=== PATIENT | male | born 1945 | race Two or more races ===

== ENCOUNTER → 2017-05-24 | Outpatient (CLI) | payer MEDICARE, OTHER ==
[~2017-05-24] MED LIST: ALLO100T30 PO; ASPI-621 PO; CHOL200024 PO; COLC0.6T37 PO; GLIM2TAB2 PO; LEVO88TA4 PO; LISI-167 PO; METF500T4 PO; METH2.5T PO; OMEP-110 PO; PRAV40TA2 PO; SOTA120T26 PO
[2017-05-24 10:34] LABS: ASPARTATE AMINO TRANSFERASE 13 U/L (15-37); BLOOD UREA NITROGEN 20 mg/dL (7-18)
== END | disposition home or self-care (01) ==
LOC: STAR 09:02
PROVIDERS: ATTEND Specialist
DX: Z12.11 Encounter for screening for malignant neoplasm of colon (principal)
CPT/HCPCS: 36415; 80053; 93005

== ENCOUNTER 2017-05-28 05:27 | Day surgery (SDC) | payer MEDICARE, OTHER ==
[2017-05-24 09:28] VITALS: BP 120/81
[~2017-05-28] VITALS: Ht 177.8 cm; Wt 99.0 kg
[2017-05-28] MEDS ORDERED: LACTATED RINGERS 1,000 ML IV SCH (06:36)
[2017-05-28] MEDS ORDERED: LIDOCAINE 1%, 2ML SQ PRN (07:00)
[2017-05-28] MEDS ORDERED: MIDAZOLAM 1 MG/ML, 2ML ONE (07:12)
[2017-05-28] MEDS ORDERED: PROPOFOL 10 MG/ML, 20ML ONE (07:30)
[2017-05-28] MEDS ORDERED: METOPROLOL 1 MG/ML, 5ML IV PRN (08:30)
[2017-05-28] MEDS ORDERED: ONDANSETRON 2MG/ML, 2ML IVPush PRN (08:30)
[2017-05-28] MEDS ORDERED: HYDROcodone/APAP 7.5-325MG/15ML UDC PO PRN (08:30)
[2017-05-28] MEDS ORDERED: ALBUTEROL SULFATE 2.5 MG/3 ML NPPB PRN (08:30)
[2017-05-28] MEDS ORDERED: hydrALAzine 20 MG/ML, 1ML IV PRN (08:30)
[2017-05-28] MEDS ORDERED: EPHEDRINE 50 MG/ML, 1ML IVPush PRN (08:30)
[2017-05-28] MEDS ORDERED: LABETALOL 5MG/ML, 20ML IV PRN (08:30)
[2017-05-28] MEDS ORDERED: OXYcodone 5 MG/5 ML ORAL.SOL UDC PO PRN (08:30)
[2017-05-28] MEDS ORDERED: PROMETHAZINE 25 MG/ML, 1ML IV PRN (08:30)
[2017-05-28] MEDS ORDERED: ACETAMINOPHEN 325 MG TABLET PO PRN (08:30)
== END 2017-05-28 09:25 ==
LOC: OUT 05:27
PROVIDERS: ATTEND Specialist
DX: K63.5 Polyp of colon (principal); K64.8 Other hemorrhoids; K57.30 Diverticulosis of large intestine without perforation or abscess without bleeding; I25.10 Atherosclerotic heart disease of native coronary artery without angina pectoris; E78.5 Hyperlipidemia, unspecified; E11.9 Type 2 diabetes mellitus without complications; M10.9 Gout, unspecified; I25.2 Old myocardial infarction; Z95.5 Presence of coronary angioplasty implant and graft; Z90.49 Acquired absence of other specified parts of digestive tract; Z98.0 Intestinal bypass and anastomosis status; Z95.0 Presence of cardiac pacemaker
CPT/HCPCS: 45380; 82962; 88305; J2250; J2704; J3490; J7120

== ENCOUNTER 2017-10-25 15:02 | Inpatient (IN) | payer MEDICARE ==
[~2017-10-25] VITALS: Ht 170.2 cm; Wt 94.2 kg
[2017-10-25] MEDS ORDERED: methylPREDNISolone SOD SUCC 125 MG/2 ML IVP ONE (15:30)
[2017-10-25] MEDS ORDERED: SODIUM CHLORIDE FLUSH 10ML SYR IVF ONE (15:30)
[2017-10-25] MEDS ORDERED: SODIUM CHLORIDE 0.9% 1,000ML IVBOLUS ONE (15:30)
[2017-10-25 15:41] LABS: BASOPHILS # (AUTO) 0.06 x10^3/uL (0-0.1); BASOPHILS % (AUTO) 1 % (0-1); EOSINOPHILS # (AUTO) 0.07 x10^3/uL (0-0.4); EOSINOPHILS % (AUTO) 1 % (1-7); LYMPHOCYTES % (AUTO) 15 % (22-44); MD NO; MEAN CORPUSCULAR HEMOGLOBIN 32.3 pg (27.5-34.5); MEAN PLATELET VOLUME 8.1 fL (7.4-10.4); MONOCYTES # (AUTO) 0.99 x10^3/uL (0.2-0.8); MONOCYTES % (AUTO) 8 % (2-9); NEUTROPHILS # (AUTO) 8.94 x10^3/uL (1.8-6.8); NEUTROPHILS % (AUTO) 75 % (42-75); PLATELET COUNT 345 x10^3/uL (130-400); RED BLOOD COUNT 3.61 x10^6/uL (4.38-5.82); RED CELL DISTRIBUTION WIDTH 16.8 % (9.4-14.8)
[2017-10-25] MEDS ORDERED: ALBUTEROL SULFATE 2.5MG/0.5ML ONE (15:45)
[2017-10-25] MEDS ORDERED: ALBUTEROL SULFATE 2.5MG/0.5ML NPPB ONE (15:45)
[2017-10-25] MEDS ORDERED: methylPREDNISolone SOD SUCC 125 MG/2 ML ONE (15:45)
[2017-10-25 15:49] LABS: INTERNATIONAL NORMALIZED RATIO 1.09 (0.93-1.1); PROTHROMBIN TIME 11.3 Seconds (9.6-11.5)
[2017-10-25 15:54] LABS: ALBUMIN 3.2 g/dL (3.4-5.0); ANION GAP 12 mmol/L (5-15); CALCIUM 8.8 mg/dL (8.5-10.1); CHLORIDE 101 mmol/L (98-107); CREATININE 1.19 mg/dL (0.7-1.3)
[2017-10-25 15:58] LABS: TROPONIN I < 0.015 ng/mL (0.000-0.045)
[2017-10-25] MEDS ORDERED: GUAIFENESIN/DM 200-20MG, 10ML UDC PO ONE (16:00)
[2017-10-25] MEDS ORDERED: METOPROLOL 1 MG/ML, 5ML ONE (16:45)
[2017-10-25] MEDS ORDERED: METOPROLOL 1 MG/ML, 5ML IVPush ONE (17:00)
[2017-10-25] MEDS ORDERED: ENOXAPARIN 40 MG/0.4 ML SQ SCH (17:30)
[2017-10-25] MEDS ORDERED: hydrALAzine 20 MG/ML, 1ML IVPush PRN (17:30)
[2017-10-25] MEDS ORDERED: ACETAMINOPHEN 325 MG TABLET PO PRN (17:30)
[2017-10-25] MEDS ORDERED: LABETALOL 5MG/ML, 20ML IVPush PRN (17:30)
[2017-10-25 17:48] LABS: FREE T4 (FREE THYROXINE) 2.16 ng/dL (0.76-1.46)
[2017-10-25] MEDS ORDERED: MAGNESIUM SULFATE PMX 4GM/100M 100 ML IV ONE (18:00)
[2017-10-25] MEDS ORDERED: FUROSEMIDE 40 MG/4 ML IV ONE (18:00)
[2017-10-25] MEDS: CARVEDILOL 3.125 MG TABLET PO SCH ×2 (18:00→22:23)
[2017-10-25 18:12] VITALS: BP 116/87
[2017-10-25] MEDS ORDERED: METHOTREXATE MC SCH (19:30)
[2017-10-25] MEDS: BENZONATATE 100 MG CAPSULE PO SCH (20:36)
[2017-10-25 22:20] VITALS: BP 130/82
[2017-10-25] MEDS: SOTALOL 120MG TABLET PO SCH (22:23)
[2017-10-25] MEDS: APIXABAN 5 MG TABLET PO SCH (22:23)
[2017-10-25] MEDS: PRAVASTATIN 40 MG TABLET PO SCH (22:24)
[2017-10-25] MEDS: INSULIN LISPRO 100 UNITS/ML, PEN SQ-INSULIN SCH (22:25)
[2017-10-26] VITALS (7 sets, daily range): BP systolic 109–121; BP diastolic 71–87
[2017-10-26] MEDS: BENZONATATE 100 MG CAPSULE PO SCH ×6 (00:30→21:18)
[2017-10-26 05:12] LABS: ALBUMIN 2.8 g/dL (3.4-5.0); ANION GAP 9 mmol/L (5-15); CALCIUM 8.2 mg/dL (8.5-10.1); CHLORIDE 103 mmol/L (98-107)
[2017-10-26 05:16] LABS: ALANINE AMINOTRANSFERASE 23 U/L (12-78); ALKALINE PHOSPHATASE 74 U/L (45-117); BILIRUBIN,TOTAL 0.8 mg/dL (0.2-1.0); CREATININE 1.19 mg/dL (0.7-1.3); TOTAL PROTEIN 8.1 g/dL (6.4-8.2)
[2017-10-26 05:22] LABS: MEAN CORPUSCULAR HEMOGLOBIN 32.8 pg (27.5-34.5); MEAN CORPUSCULAR VOLUME 99.5 fL (81-97); PLATELET COUNT 324 x10^3/uL (130-400); RED BLOOD COUNT 3.36 x10^6/uL (4.38-5.82); RED CELL DISTRIBUTION WIDTH 15.8 % (9.4-14.8)
[2017-10-26 06:32] LABS: BASOPHILS # (AUTO) 0.02 x10^3/uL (0-0.1); BASOPHILS % (AUTO) 0 % (0-1); EOSINOPHILS % (AUTO) 0 % (1-7); LYMPHOCYTES # (AUTO) 0.98 x10^3/uL (1-3.4); LYMPHOCYTES % (AUTO) 16 % (22-44); MD SCAN; MONOCYTES # (AUTO) 0.12 x10^3/uL (0.2-0.8); MONOCYTES % (AUTO) 2 % (2-9); NEUTROPHILS # (AUTO) 5.21 x10^3/uL (1.8-6.8); NEUTROPHILS % (AUTO) 82 % (42-75)
[2017-10-26] MEDS: CARVEDILOL 3.125 MG TABLET PO SCH ×2 (06:36→14:49)
[2017-10-26] MEDS: LEVOTHYROXINE 88 MCG TABLET PO SCH (06:37)
[2017-10-26] MEDS: INSULIN LISPRO 100 UNITS/ML, PEN SQ-INSULIN SCH ×4 (08:21→21:20)
[2017-10-26] MEDS: SOTALOL 120MG TABLET PO SCH ×2 (08:22→21:19)
[2017-10-26] MEDS: OMEPRAZOLE 20 MG CAPSULE.DR PO SCH (08:22)
[2017-10-26] MEDS: SPIRONOLACTONE 25 MG TABLET PO SCH (08:23)
[2017-10-26] MEDS: CHOLECALCIFEROL 1,000 UNIT TABLET PO SCH (08:23)
[2017-10-26] MEDS: LISINOPRIL 10 MG TABLET PO SCH (08:23)
[2017-10-26] MEDS: ALLOPURINOL 100 MG TABLET PO SCH (08:23)
[2017-10-26] MEDS: ASPIRIN 81 MG TABLET EC PO SCH (08:24)
[2017-10-26] MEDS: APIXABAN 5 MG TABLET PO SCH (08:24)
[2017-10-26] MEDS ORDERED: METHOTREXATE 2.5 MG TABLET PO SCH ×2 (09:00)
[2017-10-26] MEDS ORDERED: ENOXAPARIN 40 MG/0.4 ML SQ SCH (17:30)
[2017-10-26] MEDS: CARVEDILOL 6.25 MG TABLET PO SCH (20:06)
[2017-10-26] MEDS: PRAVASTATIN 40 MG TABLET PO SCH (21:20)
[2017-10-26] MEDS ORDERED: ALBUTEROL SULFATE 2.5 MG/3 ML NPPB PRN (22:00)
[2017-10-27 00:13] VITALS: BP 113/77
[2017-10-27] MEDS: BENZONATATE 100 MG CAPSULE PO SCH ×6 (01:08→22:03)
[2017-10-27 04:59] VITALS: BP 102/72
[2017-10-27] MEDS: LEVOTHYROXINE 88 MCG TABLET PO SCH (05:02)
[2017-10-27] MEDS: CARVEDILOL 6.25 MG TABLET PO SCH ×3 (05:03→22:04)
[2017-10-27] MEDS: GUAIFENESIN/DM 200-20MG, 10ML UDC PO PRN ×4 (05:03→22:03)
[2017-10-27 05:25] LABS: ANION GAP 6 mmol/L (5-15); CALCIUM 8.4 mg/dL (8.5-10.1); CHLORIDE 104 mmol/L (98-107)
[2017-10-27 05:29] LABS: CHOL/HDL RATIO 4.1; CHOLESTEROL, TOTAL 146 mg/dL (140-239); CREATININE 1.15 mg/dL (0.7-1.3); HDL CHOL % 25 % (26-37); HDL CHOLESTEROL (DIRECT) 36 mg/dL (40-60); LDL CHOLESTEROL,CALCULATED 70 mg/dL (54-169); LDL/HDL RATIO 1.9 (0.5-3.0); TRIGLYCERIDES 199 mg/dL (50-200); VLDL CHOLESTEROL 40 mg/dL (0-25)
[2017-10-27 08:30] VITALS: BP 105/78
[2017-10-27] MEDS: OMEPRAZOLE 20 MG CAPSULE.DR PO SCH (08:35)
[2017-10-27] MEDS: INSULIN LISPRO 100 UNITS/ML, PEN SQ-INSULIN SCH ×4 (08:35→22:10)
[2017-10-27] MEDS: SOTALOL 120MG TABLET PO SCH ×2 (08:35→22:05)
[2017-10-27] MEDS: SPIRONOLACTONE 25 MG TABLET PO SCH (08:35)
[2017-10-27] MEDS: LISINOPRIL 10 MG TABLET PO SCH (08:36)
[2017-10-27] MEDS: FUROSEMIDE 40 MG TABLET PO SCH (08:36)
[2017-10-27] MEDS: CHOLECALCIFEROL 1,000 UNIT TABLET PO SCH (08:36)
[2017-10-27] MEDS: ASPIRIN 81 MG TABLET EC PO SCH (08:36)
[2017-10-27] MEDS: ALLOPURINOL 100 MG TABLET PO SCH (08:36)
[2017-10-27] MEDS ORDERED: DIGOXIN 0.25 MG/ML, 2ML IVPush ONE (09:30)
[2017-10-27 13:52] VITALS: BP 116/79
[2017-10-27 20:04] VITALS: BP 121/73
[2017-10-27] MEDS: PRAVASTATIN 40 MG TABLET PO SCH (21:00)
[2017-10-27] MEDS: APIXABAN 5 MG TABLET PO SCH (22:03)
[2017-10-27] MEDS: DIGOXIN 0.25 MG TABLET PO SCH (22:05)
[2017-10-28] MEDS: BENZONATATE 100 MG CAPSULE PO SCH ×6 (01:00→20:53)
[2017-10-28 02:12] VITALS: BP 130/83
[2017-10-28] MEDS: LEVOTHYROXINE 88 MCG TABLET PO SCH (05:12)
[2017-10-28] MEDS: CARVEDILOL 6.25 MG TABLET PO SCH ×2 (05:13→13:36)
[2017-10-28] MEDS ORDERED: REGADENOSON 0.4 MG/5 ML SYRINGE ONE (07:59)
[2017-10-28 08:01] VITALS: BP 92/70
[2017-10-28] MEDS: INSULIN LISPRO 100 UNITS/ML, PEN SQ-INSULIN SCH ×4 (09:35→21:02)
[2017-10-28] MEDS: ALLOPURINOL 100 MG TABLET PO SCH (09:36)
[2017-10-28] MEDS: ASPIRIN 81 MG TABLET EC PO SCH (09:36)
[2017-10-28] MEDS: SPIRONOLACTONE 25 MG TABLET PO SCH (09:36)
[2017-10-28] MEDS: SOTALOL 120MG TABLET PO SCH ×2 (09:36→20:53)
[2017-10-28] MEDS: OMEPRAZOLE 20 MG CAPSULE.DR PO SCH (09:36)
[2017-10-28] MEDS: APIXABAN 5 MG TABLET PO SCH ×2 (09:37→20:52)
[2017-10-28] MEDS: FUROSEMIDE 40 MG TABLET PO SCH (09:37)
[2017-10-28] MEDS: CHOLECALCIFEROL 1,000 UNIT TABLET PO SCH (09:37)
[2017-10-28] MEDS: LISINOPRIL 10 MG TABLET PO SCH (09:37)
[2017-10-28] MEDS: DIGOXIN 0.25 MG TABLET PO SCH (09:43)
[2017-10-28] MEDS ORDERED: ONDANSETRON 4 MG TABLET ONE (12:10)
[2017-10-28] MEDS ORDERED: ONDANSETRON ODT 4 MG ONE (12:11)
[2017-10-28] MEDS ORDERED: ONDANSETRON ODT 4 MG PO PRN (12:30)
[2017-10-28 14:00] VITALS: BP 101/66
[2017-10-28 19:50] VITALS: BP 109/72
[2017-10-28] MEDS: PRAVASTATIN 40 MG TABLET PO SCH (20:52)
[2017-10-29 01:04] VITALS: BP 112/75
[2017-10-29] MEDS: BENZONATATE 100 MG CAPSULE PO SCH ×3 (01:50→08:55)
[2017-10-29 04:54] LABS: ANION GAP 8 mmol/L (5-15); CALCIUM 8.6 mg/dL (8.5-10.1); CHLORIDE 99 mmol/L (98-107); CREATININE 1.24 mg/dL (0.7-1.3)
[2017-10-29 05:16] LABS: HEMOGLOBIN A1C 7.8 % (4.2-6.3)
[2017-10-29] MEDS: LEVOTHYROXINE 88 MCG TABLET PO SCH (05:21)
[2017-10-29] MEDS ORDERED: APIX5TAB PO (08:40)
[2017-10-29] MEDS ORDERED: SPIR25TA PO (08:40)
[2017-10-29] MEDS ORDERED: FURO40TA6 PO (08:40)
[2017-10-29] MEDS ORDERED: CARV6.2512 PO (08:40)
[2017-10-29 08:51] VITALS: BP 91/62
[2017-10-29] MEDS: FUROSEMIDE 40 MG TABLET PO SCH (08:55)
[2017-10-29] MEDS: LISINOPRIL 10 MG TABLET PO SCH (08:55)
[2017-10-29] MEDS: SPIRONOLACTONE 25 MG TABLET PO SCH (08:55)
[2017-10-29] MEDS: OMEPRAZOLE 20 MG CAPSULE.DR PO SCH (08:55)
[2017-10-29] MEDS: ALLOPURINOL 100 MG TABLET PO SCH (08:56)
[2017-10-29] MEDS: ASPIRIN 81 MG TABLET EC PO SCH (08:56)
[2017-10-29] MEDS: DIGOXIN 0.25 MG TABLET PO SCH (08:56)
[2017-10-29] MEDS: SOTALOL 120MG TABLET PO SCH (08:56)
[2017-10-29] MEDS: APIXABAN 5 MG TABLET PO SCH (08:56)
[2017-10-29] MEDS: CHOLECALCIFEROL 1,000 UNIT TABLET PO SCH (08:56)
[2017-10-29] MEDS: INSULIN LISPRO 100 UNITS/ML, PEN SQ-INSULIN SCH (08:57)
[2017-10-29] MEDS ORDERED: CARVEDILOL 6.25 MG TABLET PO SCH (09:00)
== END 2017-10-29 11:20 | disposition home or self-care (01) | DRG 291 ==
LOC: ED 18:01 → 5SO 18:15 → DCLOUNGE 10-29 11:07
PROVIDERS: ADMIT Internal Medicine Pulmonary Disease; ATTEND Internal Medicine Pulmonary Disease
DX: I11.0 Hypertensive heart disease with heart failure (principal); J96.90 Respiratory failure, unspecified, unspecified whether with hypoxia or hypercapnia; E87.2 Acidosis; E44.1 Mild protein-calorie malnutrition; E83.42 Hypomagnesemia; E87.1 Hypo-osmolality and hyponatremia; D68.69 Other thrombophilia; I48.92 Unspecified atrial flutter; I47.1 Supraventricular tachycardia; D64.9 Anemia, unspecified; E11.9 Type 2 diabetes mellitus without complications; I50.23 Acute on chronic systolic (congestive) heart failure; I48.91 Unspecified atrial fibrillation; E03.9 Hypothyroidism, unspecified; E78.5 Hyperlipidemia, unspecified; I25.2 Old myocardial infarction; I25.5 Ischemic cardiomyopathy; I25.10 Atherosclerotic heart disease of native coronary artery without angina pectoris; Z95.810 Presence of automatic (implantable) cardiac defibrillator; Z95.5 Presence of coronary angioplasty implant and graft; Z87.891 Personal history of nicotine dependence; Z79.899 Other long term (current) drug therapy; Z66 Do not resuscitate; M10.9 Gout, unspecified; L40.9 Psoriasis, unspecified; Z68.32 Body mass index [BMI] 32.0-32.9, adult
CPT/HCPCS: 36415; 71045; 78452; 80048; 80053; 80061; 82040; 82962; 83036; 83605; 83735; 83880; 84439; 84443; 84484; 85025; 85610; 93005; 93017; 93306; 94640; 96361; 96374; 96375; 99291; J1650; J1940; J2785; J7611; J8610; Q0162; A9502; C9898; J1160; J1815; J2930; J3475; J7030

== ENCOUNTER 2017-11-04 15:07 | Inpatient (IN) | payer MEDICARE ==
[~2017-11-04] VITALS: Ht 177.8 cm; Wt 93.8 kg
[~2017-11-04 15:07] MED LIST changes: +APIX5TAB PO; +CARV6.2512 PO; +FURO40TA6 PO; +SPIR25TA PO
[2017-11-04 16:13] LABS: BASOPHILS # (AUTO) 0.02 x10^3/uL (0-0.1); BASOPHILS % (AUTO) 0 % (0-1); EOSINOPHILS # (AUTO) 0.08 x10^3/uL (0-0.4); EOSINOPHILS % (AUTO) 1 % (1-7); LYMPHOCYTES # (AUTO) 1.23 x10^3/uL (1-3.4); LYMPHOCYTES % (AUTO) 12 % (22-44); MD NO; MEAN CORPUSCULAR HEMOGLOBIN 32.6 pg (27.5-34.5); MEAN CORPUSCULAR HGB CONC 33.1 g/dL (33.2-36.2); MEAN CORPUSCULAR VOLUME 98.5 fL (81-97); MONOCYTES # (AUTO) 0.81 x10^3/uL (0.2-0.8); MONOCYTES % (AUTO) 8 % (2-9); NEUTROPHILS # (AUTO) 7.91 x10^3/uL (1.8-6.8); NEUTROPHILS % (AUTO) 79 % (42-75); PLATELET COUNT 415 x10^3/uL (130-400); RED BLOOD COUNT 3.41 x10^6/uL (4.38-5.82); RED CELL DISTRIBUTION WIDTH 16.3 % (9.4-14.8)
[2017-11-04 16:23] LABS: CALCIUM 8.7 mg/dL (8.5-10.1); CHLORIDE 87 mmol/L (98-107)
[2017-11-04 16:32] LABS: ALBUMIN 2.8 g/dL (3.4-5.0); ANION GAP 13 mmol/L (5-15); CREATININE 1.67 mg/dL (0.7-1.3); TROPONIN I < 0.015 ng/mL (0.000-0.045)
[2017-11-04] MEDS ORDERED: OMNIPAQUE 350 MG/ML, 100ML BOTTLE ONE (18:20)
[2017-11-04] MEDS ORDERED: DEXTROSE 50%, 50ML SYRINGE IVPush PRN (19:30)
[2017-11-04] MEDS ORDERED: DEXTROSE 4 GM TAB.CHEW PO PRN (19:30)
[2017-11-04] MEDS ORDERED: GUAIFENESIN/DM 200-20MG, 10ML UDC PO PRN (19:30)
[2017-11-04] MEDS ORDERED: GLUCAGON 1 MG IM PRN (19:30)
[2017-11-04] MEDS ORDERED: ONDANSETRON 2MG/ML, 2ML IVPush PRN (19:30)
[2017-11-04] MEDS ORDERED: ACETAMINOPHEN 325 MG TABLET PO PRN (19:30)
[2017-11-04] MEDS ORDERED: POLYETHYLENE GLYCOL 17 GM PACKET PO PRN (19:30)
[2017-11-04] MEDS ORDERED: BISACODYL 10 MG SUPP PR PRN (19:30)
[2017-11-04 20:04] LABS: FOLATE LEVEL > 20.0 ng/mL (3.1-17.5)
[2017-11-04 20:10] VITALS: BP 96/58
[2017-11-04 20:39] LABS: HEMOGLOBIN A1C 8.3 % (4.2-6.3)
[2017-11-04] MEDS: INSULIN LISPRO 100 UNITS/ML, PEN SQ-INSULIN SCH (21:00)
[2017-11-04] MEDS: SODIUM CHLORIDE 0.9% 1,000 ML IV SCH (22:05)
[2017-11-04] MEDS: SOTALOL 120MG TABLET PO SCH (22:06)
[2017-11-04] MEDS: APIXABAN 5 MG TABLET PO SCH (22:07)
[2017-11-04] MEDS: CEFTRIAXONE PMX 1GM/50ML 50 ML IV SCH (22:07)
[2017-11-04] MEDS: PRAVASTATIN 40 MG TABLET PO SCH (22:07)
[2017-11-04] MEDS: CARVEDILOL 6.25 MG TABLET PO SCH (22:08)
[2017-11-04] MEDS: SODIUM CHLORIDE FLUSH 10ML SYR IVF SCH (22:08)
[2017-11-04] MEDS: AZITHROMYCIN 500 MG in SODIUM CHLORIDE 0.9% 250 ML IV SCH (23:18)
[2017-11-05 01:02] VITALS: BP 98/64
[2017-11-05 04:23] LABS: BASOPHILS # (AUTO) 0.04 x10^3/uL (0-0.1); BASOPHILS % (AUTO) 1 % (0-1); EOSINOPHILS # (AUTO) 0.14 x10^3/uL (0-0.4); EOSINOPHILS % (AUTO) 2 % (1-7); LYMPHOCYTES # (AUTO) 1.52 x10^3/uL (1-3.4); LYMPHOCYTES % (AUTO) 17 % (22-44); MD NO; MEAN CORPUSCULAR HEMOGLOBIN 32.4 pg (27.5-34.5); MEAN CORPUSCULAR HGB CONC 32.9 g/dL (33.2-36.2); MEAN CORPUSCULAR VOLUME 98.4 fL (81-97); MEAN PLATELET VOLUME 7.9 fL (7.4-10.4); MONOCYTES # (AUTO) 0.62 x10^3/uL (0.2-0.8); MONOCYTES % (AUTO) 7 % (2-9); NEUTROPHILS # (AUTO) 6.69 x10^3/uL (1.8-6.8); NEUTROPHILS % (AUTO) 74 % (42-75); PLATELET COUNT 393 x10^3/uL (130-400); RED BLOOD COUNT 3.24 x10^6/uL (4.38-5.82); RED CELL DISTRIBUTION WIDTH 15.9 % (9.4-14.8)
[2017-11-05 04:34] LABS: ALANINE AMINOTRANSFERASE 17 U/L (12-78); ALBUMIN 2.5 g/dL (3.4-5.0); ANION GAP 10 mmol/L (5-15); CALCIUM 8.6 mg/dL (8.5-10.1); CHLORIDE 94 mmol/L (98-107); CREATININE 1.35 mg/dL (0.7-1.3)
[2017-11-05 04:36] LABS: ALKALINE PHOSPHATASE 68 U/L (45-117); BILIRUBIN,TOTAL 0.5 mg/dL (0.2-1.0); TOTAL PROTEIN 7.5 g/dL (6.4-8.2)
[2017-11-05] MEDS: INSULIN LISPRO 100 UNITS/ML, PEN SQ-INSULIN SCH ×4 (07:00→20:16)
[2017-11-05 07:15] VITALS: BP 103/61
[2017-11-05] MEDS: SODIUM CHLORIDE 0.9% 1,000 ML IV SCH (08:46)
[2017-11-05] MEDS: LEVOTHYROXINE 88 MCG TABLET PO SCH (09:00)
[2017-11-05] MEDS ORDERED: LISINOPRIL 10 MG TABLET PO SCH (09:00)
[2017-11-05] MEDS: SENNA/DOCUSATE TABLET PO SCH (09:00)
[2017-11-05] MEDS ORDERED: METHOTREXATE 2.5 MG TABLET PO SCH (09:00)
[2017-11-05] MEDS: SODIUM CHLORIDE FLUSH 10ML SYR IVF SCH ×2 (09:00→20:08)
[2017-11-05] MEDS: metFORMIN 500 MG TABLET PO SCH ×2 (10:34→20:06)
[2017-11-05] MEDS: GLIMEPIRIDE 1 MG TABLET PO SCH (10:34)
[2017-11-05] MEDS: OMEPRAZOLE 20 MG CAPSULE.DR PO SCH (10:34)
[2017-11-05] MEDS: FUROSEMIDE 40 MG TABLET PO SCH (10:34)
[2017-11-05] MEDS: SPIRONOLACTONE 25 MG TABLET PO SCH (10:35)
[2017-11-05] MEDS: ASPIRIN 81 MG TABLET EC PO SCH (10:35)
[2017-11-05] MEDS: CARVEDILOL 6.25 MG TABLET PO SCH ×2 (10:35→20:07)
[2017-11-05] MEDS: LISINOPRIL 5 MG TABLET PO SCH (10:35)
[2017-11-05] MEDS: APIXABAN 5 MG TABLET PO SCH ×2 (10:36→20:07)
[2017-11-05] MEDS: SOTALOL 120MG TABLET PO SCH ×2 (10:36→20:07)
[2017-11-05] MEDS: CHOLECALCIFEROL 1,000 UNIT TABLET PO SCH (10:39)
[2017-11-05 13:10] VITALS: BP 93/57
[2017-11-05 18:59] VITALS: BP 103/61
[2017-11-05] MEDS: PRAVASTATIN 40 MG TABLET PO SCH (20:07)
[2017-11-05] MEDS: CEFTRIAXONE PMX 1GM/50ML 50 ML IV SCH (20:08)
[2017-11-05] MEDS: AZITHROMYCIN 500 MG in SODIUM CHLORIDE 0.9% 250 ML IV SCH (21:25)
[2017-11-06 00:55] VITALS: BP 102/64
[2017-11-06] MEDS: SODIUM CHLORIDE 0.9% 1,000 ML IV SCH ×2 (05:09→16:20)
[2017-11-06] MEDS: LEVOTHYROXINE 88 MCG TABLET PO SCH (05:09)
[2017-11-06 06:48] VITALS: BP 114/67
[2017-11-06] MEDS: INSULIN LISPRO 100 UNITS/ML, PEN SQ-INSULIN SCH ×4 (07:00→20:52)
[2017-11-06] MEDS: APIXABAN 5 MG TABLET PO SCH ×2 (08:40→20:47)
[2017-11-06] MEDS: SPIRONOLACTONE 25 MG TABLET PO SCH (08:40)
[2017-11-06] MEDS: LISINOPRIL 5 MG TABLET PO SCH (08:40)
[2017-11-06] MEDS: metFORMIN 500 MG TABLET PO SCH ×2 (08:40→20:47)
[2017-11-06] MEDS: GLIMEPIRIDE 1 MG TABLET PO SCH (08:40)
[2017-11-06] MEDS: CARVEDILOL 6.25 MG TABLET PO SCH ×2 (08:40→20:48)
[2017-11-06] MEDS: SOTALOL 120MG TABLET PO SCH ×2 (08:40→20:47)
[2017-11-06] MEDS: ASPIRIN 81 MG TABLET EC PO SCH (08:40)
[2017-11-06] MEDS: OMEPRAZOLE 20 MG CAPSULE.DR PO SCH (08:41)
[2017-11-06] MEDS: FUROSEMIDE 40 MG TABLET PO SCH (08:41)
[2017-11-06] MEDS: CHOLECALCIFEROL 1,000 UNIT TABLET PO SCH (08:45)
[2017-11-06] MEDS: SENNA/DOCUSATE TABLET PO SCH (08:45)
[2017-11-06] MEDS: SODIUM CHLORIDE FLUSH 10ML SYR IVF SCH ×2 (08:45→20:47)
[2017-11-06 13:52] VITALS: BP 102/65
[2017-11-06 19:44] VITALS: BP 108/63
[2017-11-06] MEDS: CEFTRIAXONE PMX 1GM/50ML 50 ML IV SCH (20:43)
[2017-11-06] MEDS: PRAVASTATIN 40 MG TABLET PO SCH (20:48)
[2017-11-06] MEDS: AZITHROMYCIN 500 MG in SODIUM CHLORIDE 0.9% 250 ML IV SCH (21:38)
[2017-11-07 01:18] VITALS: BP 116/65
[2017-11-07] MEDS: SODIUM CHLORIDE 0.9% 1,000 ML IV SCH (05:51)
[2017-11-07] MEDS: LEVOTHYROXINE 88 MCG TABLET PO SCH (05:51)
[2017-11-07] MEDS ORDERED: LEVOFLOXACIN 750 MG TABLET PO SCH (06:00)
[2017-11-07] MEDS: INSULIN LISPRO 100 UNITS/ML, PEN SQ-INSULIN SCH (07:00)
[2017-11-07] MEDS ORDERED: LISI5TAB7 PO (07:00)
[2017-11-07] MEDS ORDERED: LEVO750T26 PO (07:04)
[2017-11-07 07:17] VITALS: BP 122/63
[2017-11-07] MEDS: CARVEDILOL 6.25 MG TABLET PO SCH (08:54)
[2017-11-07] MEDS: SPIRONOLACTONE 25 MG TABLET PO SCH (08:54)
[2017-11-07] MEDS: CHOLECALCIFEROL 1,000 UNIT TABLET PO SCH (08:54)
[2017-11-07] MEDS: FUROSEMIDE 40 MG TABLET PO SCH (08:54)
[2017-11-07] MEDS: APIXABAN 5 MG TABLET PO SCH (08:54)
[2017-11-07] MEDS: LISINOPRIL 5 MG TABLET PO SCH (08:55)
[2017-11-07] MEDS: SOTALOL 120MG TABLET PO SCH (08:55)
[2017-11-07] MEDS: OMEPRAZOLE 20 MG CAPSULE.DR PO SCH (08:55)
[2017-11-07] MEDS: ASPIRIN 81 MG TABLET EC PO SCH (08:55)
[2017-11-07] MEDS: GLIMEPIRIDE 1 MG TABLET PO SCH (08:55)
[2017-11-07] MEDS: metFORMIN 500 MG TABLET PO SCH (08:55)
[2017-11-07] MEDS: SODIUM CHLORIDE FLUSH 10ML SYR IVF SCH (08:56)
[2017-11-07] MEDS: SENNA/DOCUSATE TABLET PO SCH (08:56)
[2017-11-09] MEDS ORDERED: METHOTREXATE 2.5 MG TABLET PO SCH (09:00)
== END 2017-11-07 11:05 | disposition home or self-care (01) | DRG 291 ==
LOC: ED 19:07 → EDIP 19:39 → 3NE 19:50
PROVIDERS: ADMIT Hospitalist; ATTEND Hospitalist
DX: I50.23 Acute on chronic systolic (congestive) heart failure (principal); J18.9 Pneumonia, unspecified organism; D64.9 Anemia, unspecified; E11.9 Type 2 diabetes mellitus without complications; I48.91 Unspecified atrial fibrillation; E44.1 Mild protein-calorie malnutrition; E87.1 Hypo-osmolality and hyponatremia; I48.92 Unspecified atrial flutter; E03.9 Hypothyroidism, unspecified; L40.9 Psoriasis, unspecified; E78.5 Hyperlipidemia, unspecified; I25.10 Atherosclerotic heart disease of native coronary artery without angina pectoris; I25.2 Old myocardial infarction; M10.9 Gout, unspecified; N28.9 Disorder of kidney and ureter, unspecified; Z95.810 Presence of automatic (implantable) cardiac defibrillator; Z68.29 Body mass index [BMI] 29.0-29.9, adult; Z79.82 Long term (current) use of aspirin; Z79.899 Other long term (current) drug therapy
CPT/HCPCS: 36415; 71045; 71275; 80048; 80053; 82040; 82607; 82746; 82962; 83036; 83880; 84295; 84484; 85025; 87040; 87070; 87205; 93005; 99285; J0456; J0696; Q9967; J1815; J7030; J7050

== ENCOUNTER → 2018-07-18 | Outpatient (CLI) | payer MEDICARE ==
[~2018-07-18] MED LIST changes: -ASPI-621 PO; +ASPI81TA45 PO; +LEVO750T26 PO; +LISI5TAB7 PO; +METF500T17 PO; -METF500T4 PO
== END | disposition home or self-care (01) ==
LOC: CVU 07:10
PROVIDERS: ATTEND Family Medicine
DX: E11.21 Type 2 diabetes mellitus with diabetic nephropathy (principal); I10 Essential (primary) hypertension; R20.0 Anesthesia of skin; E78.5 Hyperlipidemia, unspecified; I25.10 Atherosclerotic heart disease of native coronary artery without angina pectoris
CPT/HCPCS: 93922; 93925; 93978

== ENCOUNTER 2018-10-22 11:10 | Observation (INO) | payer MEDICARE ==
[~2018-10-22] VITALS: Ht 177.8 cm; Wt 95.0 kg
--- NOTE | 2018-10-22 11:30 | NUR ---
C/O SOB and CP x 2 days. Hx NH and pacer. REPORTS EXERTIONAL SXS WHICH RESOLVE WITH REST. V PACED RHYTHM 60-80, B/P 101/68, POX 100% HAS NOT TAKEN ANY ASA OR NITRO
--- NOTE | 2018-10-22 13:00 | NUR ---
LAB UNABLE TO PROCESS SPECIMENS SENT EARLIER. COLLECTION CARD CLERK LUZ NEW SET OF LABS W/ PIV PLACEMENT AND SENT AT 1300
[2018-10-22] MEDS ORDERED: ASPIRIN 81 MG TABLET CHEW ONE (13:08)
--- NOTE | 2018-10-22 13:14 | NUR ---
PATIENT REPORTING SUDDEN ONSET SOB/DIZZINESS. AUTO NIBP OF 86/68, HR STABLE V PACED RHYTHM IN THE 70'S, POX 99%-PROVIDER TO BEDSIDE: WHILE PROVIDER RE-EXAMINED REFRIGERATING ENGINEER PERFORMED MANUAL B/P 100/40. TO ADMIN 324MG OF ASA-NO FURTHER ORDERS AT THIS TIME
[2018-10-22 13:22] LABS: BASOPHILS # (AUTO) 0.04 x10^3/uL (0-0.1); BASOPHILS % (AUTO) 1 % (0-1); EOSINOPHILS # (AUTO) 0.12 x10^3/uL (0-0.4); EOSINOPHILS % (AUTO) 2 % (1-7); LYMPHOCYTES # (AUTO) 1.56 x10^3/uL (1-3.4); LYMPHOCYTES % (AUTO) 22 % (22-44); MD NO; MEAN CORPUSCULAR HEMOGLOBIN 32.4 pg (27.5-34.5); MEAN CORPUSCULAR HGB CONC 32.4 g/dL (33.2-36.2); MEAN CORPUSCULAR VOLUME 100.1 fL (81-97); MEAN PLATELET VOLUME 9.1 fL (7.4-10.4); MONOCYTES # (AUTO) 0.37 x10^3/uL (0.2-0.8); MONOCYTES % (AUTO) 5 % (2-9); NEUTROPHILS # (AUTO) 5.02 x10^3/uL (1.8-6.8); NEUTROPHILS % (AUTO) 71 % (42-75); PLATELET COUNT 233 x10^3/uL (130-400); RED BLOOD COUNT 3.69 x10^6/uL (4.38-5.82)
--- NOTE | 2018-10-22 13:26 | NUR ---
MEDICATED PER EMAR (324MG OF ASA) REPORTS SOB/PALPITATIONS COMPLETELY RELIEVED, HR 77, 108/69
[2018-10-22] MEDS ORDERED: ASPIRIN 81 MG TABLET CHEW PO ONE (13:30)
[2018-10-22 13:34] LABS: D-DIMER 1.12 ug/mlFEU (0.00-0.52); INTERNATIONAL NORMALIZED RATIO 1.04 (0.93-1.1); PROTHROMBIN TIME 10.9 Seconds (9.6-11.5)
--- NOTE | 2018-10-22 13:34 | NUR ---
PT RESTING ON JOSE. NO ACUTE DISTRESS NOTED. US BEDSIDE. NO NEEDS REQUESTED AT THIS TIME. Addendum: 10/22/18 at 1335 by NORA TASK RN:
--- NOTE | 2018-10-22 13:36 | NUR ---
US AT BEDSIDE
[2018-10-22 13:42] LABS: ALANINE AMINOTRANSFERASE 26 U/L (12-78); ALBUMIN 3.5 g/dL (3.4-5.0); ANION GAP 9 mmol/L (5-15); CALCIUM 9.1 mg/dL (8.5-10.1); CHLORIDE 108 mmol/L (98-107); CREATININE 1.48 mg/dL (0.7-1.3)
[2018-10-22 13:47] LABS: ALKALINE PHOSPHATASE 60 U/L (45-117); BILIRUBIN,TOTAL 0.5 mg/dL (0.2-1.0); TOTAL PROTEIN 8.1 g/dL (6.4-8.2); TROPONIN I < 0.015 ng/mL (0.000-0.045)
[2018-10-22] MEDS ORDERED: METH2.5T PO (13:48)
--- NOTE | 2018-10-22 13:54 | NUR ---
MED RECC OCMPLETED. PATIENT SEEMS IF HE IS A GOOD HISTORIAN BUT HE WAS UNSURE OF A FEW DOSES/NAMES HE REPORTS HE IS "PRETTY SURE" HE NO LONGER TAKES ALDACTONE 25MG HE REPORTS HE ONLY TOOK LASIX FOR THE FLUID RETENTION HE HAD IN R/T TO HIS RECENT PNA DX-AND HE NO LONGER TAKES IT HE IS UNSURE OF THE DOSE ON HIS CARVEDILOL TO LET HOSPITALIST/ASSET PROTECTION REPRESENTATIVE KNOW HE WILL NEED HIS MED RECC VERIFIED US COMPLETE
--- NOTE | 2018-10-22 14:41 | NUR ---
WITH RE-ASSESSMENT PATIENT REPORTS NO CHEST PRESSURE/PALPITATION OR SHORTNESS OF BREATH HE RESTS. VSS ON MOUNTER FLUTES AND PICCOLOS UPDATED ON POC (ADMIT SHORTLY) CALL CUELLAR IN HAND/SIDE RAILS UP
--- NOTE | 2018-10-22 15:07 | NUR ---
AFTER DISCUSSION WITH ER PROVIDER (NO ASSIGNED HOSPITALIST YET)-PATIENT OK TO EAT- PROVIDED WITH SALTINES/WATER/STRING CHEESE
--- NOTE | 2018-10-22 15:18 | NUR ---
PATIENT REPORTING HE FEELS IF HIS BS IS LOW. PATTERN CUTTER CHECKED WITH GLUCOMETER (51) PROVIDED WITH OJ/PNUT BUTTER. HOSPITALIST TO BEDSIDE- TO ENCOURAGE CALORIE DENSE FOODS NO NEED FOR DEXTROSE. THIERRY ON TELE CALLED TO UPDATE PATIENT TO BE TRANSFERRED SHORTLY
[2018-10-22 15:29] VITALS: BP 137/67
[2018-10-22] MEDS ORDERED: ACETAMINOPHEN 325 MG TABLET PO PRN (15:30)
[2018-10-22] MEDS ORDERED: ONDANSETRON ODT 4 MG PO PRN (15:30)
[2018-10-22] MEDS ORDERED: ONDANSETRON 2MG/ML, 2ML IVPush PRN (15:30)
[2018-10-22] MEDS: INSULIN LISPRO 100 UNITS/ML, PEN SQ-INSULIN SCH ×2 (16:00→21:59)
[2018-10-22 16:31] LABS: HEMOGLOBIN A1C 7.4 % (4.2-6.3)
[2018-10-22] MEDS ORDERED: FUROSEMIDE 20 MG/2 ML IV SCH (17:00)
[2018-10-22] MEDS ORDERED: OMNIPAQUE 350 MG/ML, 100ML BOTTLE ONE (17:18)
[2018-10-22] MEDS: HEPARIN 5,000 UNITS/ML, 1ML SQ SCH (18:17)
[2018-10-22 19:05] LABS: TROPONIN I < 0.015 ng/mL (0.000-0.045)
[2018-10-22 19:23] VITALS: BP 109/70
[2018-10-22] MEDS: CARVEDILOL 6.25 MG TABLET PO SCH (21:27)
[2018-10-22] MEDS: PRAVASTATIN 40 MG TABLET PO SCH (21:27)
[2018-10-22] MEDS: SOTALOL 120MG TABLET PO SCH (21:27)
[2018-10-23] VITALS (11 sets, daily range): BP systolic 85–127; BP diastolic 57–76
[2018-10-23 01:37] LABS: BASOPHILS # (AUTO) 0.05 x10^3/uL (0-0.1); BASOPHILS % (AUTO) 1 % (0-1); EOSINOPHILS # (AUTO) 0.18 x10^3/uL (0-0.4); EOSINOPHILS % (AUTO) 3 % (1-7); LYMPHOCYTES # (AUTO) 1.82 x10^3/uL (1-3.4); LYMPHOCYTES % (AUTO) 26 % (22-44); MD NO; MEAN CORPUSCULAR HEMOGLOBIN 32.1 pg (27.5-34.5); MEAN CORPUSCULAR HGB CONC 32.3 g/dL (33.2-36.2); MEAN CORPUSCULAR VOLUME 99.4 fL (81-97); MEAN PLATELET VOLUME 8.6 fL (7.4-10.4); MONOCYTES # (AUTO) 0.57 x10^3/uL (0.2-0.8); MONOCYTES % (AUTO) 8 % (2-9); NEUTROPHILS % (AUTO) 63 % (42-75); PLATELET COUNT 239 x10^3/uL (130-400); RED CELL DISTRIBUTION WIDTH 15.8 % (9.4-14.8)
[2018-10-23 01:49] LABS: ALANINE AMINOTRANSFERASE 22 U/L (12-78); ALBUMIN 3.5 g/dL (3.4-5.0); ANION GAP 8 mmol/L (5-15); CALCIUM 9.3 mg/dL (8.5-10.1); CHLORIDE 103 mmol/L (98-107); CREATININE 1.59 mg/dL (0.7-1.3)
[2018-10-23 01:54] LABS: TROPONIN I < 0.015 ng/mL (0.000-0.045)
[2018-10-23 02:00] LABS: ALKALINE PHOSPHATASE 59 U/L (45-117); BILIRUBIN,TOTAL 0.5 mg/dL (0.2-1.0); CHOL/HDL RATIO 2.8; CHOLESTEROL, TOTAL 135 mg/dL (140-239); HDL CHOL % 36 % (26-37); HDL CHOLESTEROL (DIRECT) 48 mg/dL (40-60); LDL CHOLESTEROL,CALCULATED 32 mg/dL (54-169); LDL/HDL RATIO 0.7 (0.5-3.0); TOTAL PROTEIN 8.2 g/dL (6.4-8.2); TRIGLYCERIDES 276 mg/dL (50-200); VLDL CHOLESTEROL 55 mg/dL (0-25)
[2018-10-23] MEDS: HEPARIN 5,000 UNITS/ML, 1ML SQ SCH (02:10)
[2018-10-23] MEDS: INSULIN LISPRO 100 UNITS/ML, PEN SQ-INSULIN SCH ×4 (07:00→21:50)
[2018-10-23] MEDS ORDERED: SODIUM CHLORIDE 0.9% 1,000 ML IV SCH (08:30)
[2018-10-23] MEDS ORDERED: SODIUM CHLORIDE 0.9% 500 ML IV SCH (09:00)
[2018-10-23] MEDS: SOTALOL 120MG TABLET PO SCH ×2 (09:31→21:50)
[2018-10-23] MEDS: CHOLECALCIFEROL 1,000 UNIT TABLET PO SCH (09:31)
[2018-10-23] MEDS: LEVOTHYROXINE 88 MCG TABLET PO SCH (09:33)
[2018-10-23] MEDS: OMEPRAZOLE 20 MG CAPSULE.DR PO SCH (09:33)
[2018-10-23] MEDS: ASPIRIN 81 MG TABLET EC PO SCH (09:33)
[2018-10-23] MEDS: CARVEDILOL 6.25 MG TABLET PO SCH ×2 (09:33→21:51)
[2018-10-23] MEDS: APIXABAN 5 MG TABLET PO SCH ×2 (13:28→21:50)
[2018-10-23] MEDS: PRAVASTATIN 40 MG TABLET PO SCH (21:50)
[2018-10-24 03:03] VITALS: BP 105/67
[2018-10-24 05:22] LABS: BASOPHILS # (AUTO) 0.05 x10^3/uL (0-0.1); BASOPHILS % (AUTO) 1 % (0-1); EOSINOPHILS % (AUTO) 3 % (1-7); LYMPHOCYTES # (AUTO) 1.78 x10^3/uL (1-3.4); LYMPHOCYTES % (AUTO) 23 % (22-44); MD NO; MEAN CORPUSCULAR HEMOGLOBIN 32.4 pg (27.5-34.5); MEAN CORPUSCULAR HGB CONC 32.5 g/dL (33.2-36.2); MEAN CORPUSCULAR VOLUME 99.5 fL (81-97); MEAN PLATELET VOLUME 8.7 fL (7.4-10.4); MONOCYTES # (AUTO) 0.61 x10^3/uL (0.2-0.8); MONOCYTES % (AUTO) 8 % (2-9); NEUTROPHILS # (AUTO) 5.18 x10^3/uL (1.8-6.8); NEUTROPHILS % (AUTO) 66 % (42-75); PLATELET COUNT 201 x10^3/uL (130-400); RED BLOOD COUNT 3.49 x10^6/uL (4.38-5.82); RED CELL DISTRIBUTION WIDTH 15.3 % (9.4-14.8)
[2018-10-24 05:30] LABS: ALBUMIN 3.2 g/dL (3.4-5.0); ANION GAP 10 mmol/L (5-15); CALCIUM 8.8 mg/dL (8.5-10.1); CHLORIDE 105 mmol/L (98-107)
[2018-10-24 05:35] LABS: ALANINE AMINOTRANSFERASE 17 U/L (12-78); ALKALINE PHOSPHATASE 54 U/L (45-117); BILIRUBIN,TOTAL 0.5 mg/dL (0.2-1.0); CREATININE 1.49 mg/dL (0.7-1.3); TOTAL PROTEIN 7.5 g/dL (6.4-8.2)
[2018-10-24] MEDS: INSULIN LISPRO 100 UNITS/ML, PEN SQ-INSULIN SCH ×3 (07:00→16:21)
[2018-10-24 07:40] VITALS: BP 132/66
[2018-10-24 07:44] VITALS: BP 116/73
[2018-10-24 07:51] VITALS: BP 120/76
[2018-10-24] MEDS ORDERED: SPIRONOLACTONE 25 MG TABLET PO SCH (09:00)
[2018-10-24] MEDS: CHOLECALCIFEROL 1,000 UNIT TABLET PO SCH (09:28)
[2018-10-24] MEDS: SOTALOL 120MG TABLET PO SCH (09:28)
[2018-10-24] MEDS: ASPIRIN 81 MG TABLET EC PO SCH (09:28)
[2018-10-24] MEDS: APIXABAN 5 MG TABLET PO SCH (09:28)
[2018-10-24] MEDS: LEVOTHYROXINE 88 MCG TABLET PO SCH (09:28)
[2018-10-24] MEDS: CARVEDILOL 6.25 MG TABLET PO SCH (09:28)
[2018-10-24] MEDS: OMEPRAZOLE 20 MG CAPSULE.DR PO SCH (09:28)
[2018-10-24 12:50] VITALS: BP 128/88
[2018-10-24] MEDS ORDERED: APIX5TAB PO (13:58)
== END 2018-10-24 16:35 | disposition home or self-care (01) ==
LOC: ED 13:00 → INTOOBSV 14:12 → EDIP 14:12 → 5SO 15:23 → DCLOUNGE 10-24 16:25
PROVIDERS: ADMIT Internal Medicine; ATTEND Internal Medicine
DX: I11.0 Hypertensive heart disease with heart failure (principal); I50.41 Acute combined systolic (congestive) and diastolic (congestive) heart failure; N17.0 Acute kidney failure with tubular necrosis; R42 Dizziness and giddiness; I82.531 Chronic embolism and thrombosis of right popliteal vein; D53.9 Nutritional anemia, unspecified; I07.1 Rheumatic tricuspid insufficiency; L40.9 Psoriasis, unspecified; D89.9 Disorder involving the immune mechanism, unspecified; I48.91 Unspecified atrial fibrillation; R79.1 Abnormal coagulation profile; I21.9 Acute myocardial infarction, unspecified; I25.10 Atherosclerotic heart disease of native coronary artery without angina pectoris; E03.9 Hypothyroidism, unspecified; E11.9 Type 2 diabetes mellitus without complications; M10.9 Gout, unspecified; E78.5 Hyperlipidemia, unspecified; Z79.82 Long term (current) use of aspirin; Z79.01 Long term (current) use of anticoagulants; Z79.84 Long term (current) use of oral hypoglycemic drugs; Z79.899 Other long term (current) drug therapy; Z95.0 Presence of cardiac pacemaker
CPT/HCPCS: 36415; 71045; 71275; 80053; 80061; 82962; 83036; 83880; 84443; 84484; 85025; 85379; 85610; 85730; 93005; 93970; 96361; 96372; 96374; 99285; C8929; G0378; J1644; J1815; J1940; J7040; Q9957; Q9967; 96366

== ENCOUNTER 2020-11-28 09:30 | Inpatient (IN) | payer MEDICARE ==
[~2020-11-28] VITALS: Ht 177.8 cm; Wt 89.9 kg
[~2020-11-28 09:30] MED LIST changes: +BUME1TAB21 PO; -GLIM2TAB2 PO; +GLIM2TAB7 PO; +LISI2.5T PO; +METF10007 PO; +OMEP20CA20 PO; +ROSU20TA29 PO
--- NOTE | 2020-11-28 09:39 | NUR ---
late entry for 938 d/t patient care: LEFT CHEST PAIN ONSET THIS AM, SOB SINCE LAST WEEK, WORSE THIS AM. PT HAS GENREALIZED WEAKNESS, WORSE THIS AM, UNABLE TO WALK D/T SOB AND GENERALIZED WEAKNESS. HOSPITALIZED FOR AL LAST WEEK, WAS SUPPOSED TO GET HOME OXYGEN THROUGH CARDIOLOGY, "IT NEVER CAME" . FSBS 259 PACKAGER PER EMS. PT A&O, RESPS EVEN AND UNLABORED, ALL MONITORS APPLIED. PER EMS, PT'S INITIAL HR WAS 150, SUSPECTED SVT VS AFLUTTER, THEN CONVERTED TO AFIB SPONTANEOUSLY. PT HAS HX AFIB. PT DENIES INJURY OR FALL. EKG TAKEN ON ARRIVAL BY EDT. AWAITING MD AND ORDERS.
--- NOTE | 2020-11-28 10:12 | NUR ---
edmd law at bedside.
[2020-11-28 10:51] LABS: ALANINE AMINOTRANSFERASE 16 U/L (12-78); ALBUMIN 3.3 g/dL (3.4-5.0); ANION GAP 13 mmol/L (5-15); CHLORIDE 103 mmol/L (98-107); CREATININE 1.83 mg/dL (0.7-1.3)
[2020-11-28 10:52] LABS: MEAN CORPUSCULAR HEMOGLOBIN 32.6 pg (27.5-34.5); MEAN CORPUSCULAR HGB CONC 33.3 g/dL (33.2-36.2); MEAN PLATELET VOLUME 8.5 fL (7.4-10.4); PLATELET COUNT 195 x10^3/uL (130-400); RED BLOOD COUNT 3.44 x10^6/uL (4.38-5.82); RED CELL DISTRIBUTION WIDTH 18.2 % (9.4-14.8)
[2020-11-28 10:55] LABS: ALKALINE PHOSPHATASE 60 U/L (45-117); BILIRUBIN,TOTAL 1.3 mg/dL (0.2-1.0); TOTAL PROTEIN 8.2 g/dL (6.4-8.2); TROPONIN I < 0.015 ng/mL (0.000-0.045)
--- NOTE | 2020-11-28 11:13 | NUR ---
pt resting on gurney, resps even and unlabored, afib rate 110s on brusher hand with no ectopy. pt is a&o, resps even and unlabored, neuro intact. pt denies chest pain. labs pending, awaiting final results and dispo.
[2020-11-28 11:22] LABS: <PLATELET ESTIMATE> ADEQUATE; <PLT MORPHOLOGY> NORMAL PLT MORPH; ANISOCYTOSIS 1+; BASOS#(MANUAL) 0.02 x10^3/uL (0-0.1); BASOS% (MANUAL) 1 % (0-1); EOS#(MANUAL) 0.07 x10^3/uL (0.0-0.4); EOS% (MANUAL) 3 % (1-7); LYMPH#(MANUAL) 0.97 x10^3/uL (1-3.4); LYMPHS% (MANUAL) 44 % (22-44); MONOS#(MANUAL) 0.04 x10^3/uL (0.3-2.7); MONOS% (MANUAL) 2 % (2-9); SEGS% (MANUAL) 50 % (42-75)
[2020-11-28] MEDS ORDERED: SODIUM CHLORIDE 0.9% 1,000 ML IV ONE (12:00)
--- NOTE | 2020-11-28 12:09 | NUR ---
labs reviewed by edmd mary md informed that pt was unable to walk this am per family d/t generalized weakness noted upon awakening, has been progressively getting worse since discharge home. 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 pt to be admitted, discussed this with pt and family who is agreeable.
--- NOTE | 2020-11-28 12:54 | NUR ---
ESTRELLITA SOLIS NOTIFIED BP 89/68, 500ML NS BOLUS ORDERED. PA NOTIFIED PT MEETS SOME SIRS CRITERIA (HR >90, WBC <2), NO SOURCE OF INFECTION IDENTIFIED. PER PA, PT NOT SEPTIC. PT A&O, RESPS EVEN AND UNLABORED, PACED RHTHM ON SUPERVISOR BLAST FURNACE RATE 70'S WITH NO ECTOPY. PT HAS NO COMPLAINT AT THIS TIME.
[2020-11-28] MEDS ORDERED: ASPIRIN 325 MG TABLET PO ONE (13:00)
[2020-11-28] MEDS ORDERED: ASPIRIN 325 MG TABLET ONE (13:41)
[2020-11-28] MEDS ORDERED: DOCUSATE 100 MG CAPSULE PO PRN (14:00)
[2020-11-28] MEDS ORDERED: BISACODYL 10 MG SUPP PR PRN (14:00)
[2020-11-28] MEDS ORDERED: PHARMACY MAY ADJ FOR RENAL FX MC PRN (14:00)
[2020-11-28] MEDS ORDERED: POLYETHYLENE GLYCOL 17 GM PACKET PO PRN (14:00)
[2020-11-28] MEDS ORDERED: ACETAMINOPHEN 325 MG TABLET PO PRN (14:00)
--- NOTE | 2020-11-28 14:30 | NUR ---
Report taken from break AARON Arias. pt moved to hospital bed, all monitors remain in place pt in paced rhythm, rate 80s, underlying sinus. pt a&o, resps even and unlabored. nadn. pt provided with diabetic, cardiac meal tray. fsbs prior to meal 180.
--- NOTE | 2020-11-28 14:57 | NUR ---
report given to AARON Ren. pt to be transported to cardiac tele.
[2020-11-28] MEDS ORDERED: MAGNESIUM SULFATE PMX 2GM/50ML 50 ML IV ONE (15:30)
[2020-11-28 15:48] VITALS: BP 113/73
[2020-11-28] MEDS: SODIUM CHLORIDE 0.9% 1,000 ML IV SCH (17:07)
[2020-11-28 18:01] LABS: MICROSCOPIC INDICATED
[2020-11-28 21:45] VITALS: BP 113/71
[2020-11-28] MEDS: APIXABAN 5 MG TABLET PO SCH (22:21)
[2020-11-28] MEDS: SOTALOL 120MG TABLET PO SCH (22:21)
[2020-11-28] MEDS: CARVEDILOL 6.25 MG TABLET PO SCH (22:21)
[2020-11-29 00:57] VITALS: BP 98/61
[2020-11-29] MEDS: SODIUM CHLORIDE 0.9% 1,000 ML IV SCH ×2 (04:00→14:00)
[2020-11-29 05:32] LABS: MEAN CORPUSCULAR HEMOGLOBIN 32.9 pg (27.5-34.5); MEAN CORPUSCULAR HGB CONC 33.5 g/dL (33.2-36.2); MEAN PLATELET VOLUME 8.2 fL (7.4-10.4); PLATELET COUNT 150 x10^3/uL (130-400); RED BLOOD COUNT 3.16 x10^6/uL (4.38-5.82); RED CELL DISTRIBUTION WIDTH 18.1 % (9.4-14.8)
[2020-11-29 05:41] LABS: ANION GAP 9 mmol/L (5-15); CALCIUM 8.7 mg/dL (8.5-10.1); CHLORIDE 106 mmol/L (98-107)
[2020-11-29 05:55] LABS: CREATININE 1.48 mg/dL (0.7-1.3)
[2020-11-29 06:09] LABS: EOS#(MANUAL) 0.09 x10^3/uL (0.0-0.4); EOS% (MANUAL) 4 % (1-7); LYMPH#(MANUAL) 1.38 x10^3/uL (1-3.4); LYMPHS% (MANUAL) 60 % (22-44); MONOS#(MANUAL) 0.07 x10^3/uL (0.3-2.7); MONOS% (MANUAL) 3 % (2-9); SEG#(MANUAL) 0.76 x10^3/uL (1.8-6.8); SEGS% (MANUAL) 33 % (42-75)
[2020-11-29 06:12] LABS: <PLATELET ESTIMATE> ADEQUATE; <PLT MORPHOLOGY> NORMAL PLT MORPH; ANISOCYTOSIS 1+
[2020-11-29 07:00] VITALS: BP 105/67
[2020-11-29] MEDS: OMEPRAZOLE 20 MG CAPSULE.DR PO SCH (08:53)
[2020-11-29] MEDS: SOTALOL 120MG TABLET PO SCH (08:53)
[2020-11-29] MEDS: ASPIRIN 81 MG TABLET EC PO SCH (08:53)
[2020-11-29] MEDS: LEVOTHYROXINE 88 MCG TABLET PO SCH (08:54)
[2020-11-29] MEDS: APIXABAN 5 MG TABLET PO SCH ×2 (08:54→21:41)
[2020-11-29] MEDS: CARVEDILOL 6.25 MG TABLET PO SCH ×2 (08:54→21:41)
[2020-11-29] MEDS: BUMETANIDE 1 MG TABLET PO SCH (11:40)
[2020-11-29] MEDS: LISINOPRIL 5 MG TABLET PO SCH (11:40)
[2020-11-29 17:57] VITALS: BP 99/66
[2020-11-29 20:01] VITALS: BP 116/72
[2020-11-30 01:25] VITALS: BP 101/68
[2020-11-30 05:45] LABS: ANION GAP 8 mmol/L (5-15); CALCIUM 8.9 mg/dL (8.5-10.1); CHLORIDE 107 mmol/L (98-107); MEAN CORPUSCULAR HEMOGLOBIN 32.9 pg (27.5-34.5); MEAN CORPUSCULAR HGB CONC 33.2 g/dL (33.2-36.2); MEAN PLATELET VOLUME 8.3 fL (7.4-10.4); PLATELET COUNT 143 x10^3/uL (130-400); RED BLOOD COUNT 3.12 x10^6/uL (4.38-5.82); RED CELL DISTRIBUTION WIDTH 18.6 % (9.4-14.8)
[2020-11-30 06:48] LABS: BASOS#(MANUAL) 0.04 x10^3/uL (0-0.1); BASOS% (MANUAL) 1 % (0-1); EOS#(MANUAL) 0.19 x10^3/uL (0.0-0.4); EOS% (MANUAL) 5 % (1-7); LYMPH#(MANUAL) 1.48 x10^3/uL (1-3.4); LYMPHS% (MANUAL) 40 % (22-44); MONOS#(MANUAL) 0.07 x10^3/uL (0.3-2.7); MONOS% (MANUAL) 2 % (2-9); SEG#(MANUAL) 1.92 x10^3/uL (1.8-6.8); SEGS% (MANUAL) 52 % (42-75)
[2020-11-30 06:49] LABS: <PLATELET ESTIMATE> ADEQUATE; <PLT MORPHOLOGY> NORMAL PLT MORPH; ANISOCYTOSIS 1+
[2020-11-30 07:15] VITALS: BP 107/73
[2020-11-30] MEDS: BUMETANIDE 1 MG TABLET PO SCH (08:07)
[2020-11-30] MEDS: ASPIRIN 81 MG TABLET EC PO SCH (08:08)
[2020-11-30] MEDS: CARVEDILOL 6.25 MG TABLET PO SCH ×2 (08:08→20:13)
[2020-11-30] MEDS: OMEPRAZOLE 20 MG CAPSULE.DR PO SCH (08:08)
[2020-11-30] MEDS: APIXABAN 5 MG TABLET PO SCH ×2 (08:08→20:13)
[2020-11-30] MEDS: LISINOPRIL 5 MG TABLET PO SCH (08:09)
[2020-11-30] MEDS: LEVOTHYROXINE 88 MCG TABLET PO SCH (08:09)
[2020-11-30] MEDS ORDERED: MAGNESIUM SULFATE PMX 2GM/50ML 50 ML IV ONE (09:00)
[2020-11-30] MEDS: AMIODARONE 200 MG TABLET PO SCH ×2 (11:39→20:13)
[2020-11-30 13:59] VITALS: BP 108/67
[2020-11-30 19:26] VITALS: BP 110/74
[2020-12-01 02:00] VITALS: BP 105/68
[2020-12-01 05:45] LABS: MEAN CORPUSCULAR HGB CONC 33.5 g/dL (33.2-36.2); MEAN PLATELET VOLUME 8.4 fL (7.4-10.4); PLATELET COUNT 119 x10^3/uL (130-400); RED BLOOD COUNT 3.23 x10^6/uL (4.38-5.82)
[2020-12-01 05:49] LABS: ANION GAP 5 mmol/L (5-15); CALCIUM 8.6 mg/dL (8.5-10.1); CHLORIDE 104 mmol/L (98-107)
[2020-12-01 05:50] LABS: CREATININE 1.35 mg/dL (0.7-1.3)
[2020-12-01 06:10] LABS: ANISOCYTOSIS 1+; BASOS#(MANUAL) 0.16 x10^3/uL (0-0.1); BASOS% (MANUAL) 3 % (0-1); EOS#(MANUAL) 0.26 x10^3/uL (0.0-0.4); EOS% (MANUAL) 5 % (1-7); LYMPH#(MANUAL) 2.08 x10^3/uL (1-3.4); LYMPHS% (MANUAL) 40 % (22-44); MONOS#(MANUAL) 0.21 x10^3/uL (0.3-2.7); MONOS% (MANUAL) 4 % (2-9); SEGS% (MANUAL) 48 % (42-75)
[2020-12-01 06:11] LABS: <PLATELET ESTIMATE> DECREASED; <PLT MORPHOLOGY> NORMAL PLT MORPH
[2020-12-01 07:53] VITALS: BP 111/73
[2020-12-01] MEDS ORDERED: METHOTREXATE 2.5 MG TABLET PO SCH (09:00)
[2020-12-01] MEDS: CARVEDILOL 6.25 MG TABLET PO SCH ×2 (09:05→20:02)
[2020-12-01] MEDS: BUMETANIDE 1 MG TABLET PO SCH (09:05)
[2020-12-01] MEDS: OMEPRAZOLE 20 MG CAPSULE.DR PO SCH (09:06)
[2020-12-01] MEDS: APIXABAN 5 MG TABLET PO SCH ×2 (09:06→20:02)
[2020-12-01] MEDS: AMIODARONE 200 MG TABLET PO SCH ×2 (09:06→20:02)
[2020-12-01] MEDS: LISINOPRIL 5 MG TABLET PO SCH (09:06)
[2020-12-01] MEDS: ASPIRIN 81 MG TABLET EC PO SCH (09:06)
[2020-12-01] MEDS: LEVOTHYROXINE 88 MCG TABLET PO SCH (09:06)
[2020-12-01 12:43] VITALS: BP 104/70
[2020-12-01] MEDS ORDERED: MAGNESIUM SULFATE 3 GM in SODIUM CHLORIDE 0.9% 100 ML IV ONE (16:00)
[2020-12-01 19:20] VITALS: BP 98/63
[2020-12-01 20:01] VITALS: BP 100/65
[2020-12-02 01:14] VITALS: BP 111/73
[2020-12-02 07:25] VITALS: BP 110/73
[2020-12-02] MEDS ORDERED: AMIO200T42 PO (08:49)
[2020-12-02] MEDS: OMEPRAZOLE 20 MG CAPSULE.DR PO SCH (08:54)
[2020-12-02] MEDS: CARVEDILOL 6.25 MG TABLET PO SCH (08:54)
[2020-12-02] MEDS: LEVOTHYROXINE 88 MCG TABLET PO SCH (08:54)
[2020-12-02] MEDS: BUMETANIDE 1 MG TABLET PO SCH (08:55)
[2020-12-02] MEDS: AMIODARONE 200 MG TABLET PO SCH (08:55)
[2020-12-02] MEDS: APIXABAN 5 MG TABLET PO SCH (08:55)
[2020-12-02] MEDS: ASPIRIN 81 MG TABLET EC PO SCH (08:55)
[2020-12-02] MEDS: LISINOPRIL 5 MG TABLET PO SCH (08:55)
== END 2020-12-02 12:54 | disposition home or self-care (01) | DRG 682 ==
LOC: ED 09:59 → EDIP 12:29 → 5SO 15:38
PROVIDERS: ADMIT Emergency Medicine; ATTEND Emergency Medicine
DX: N17.9 Acute kidney failure, unspecified (principal); J96.91 Respiratory failure, unspecified with hypoxia; I50.43 Acute on chronic combined systolic (congestive) and diastolic (congestive) heart failure; D68.69 Other thrombophilia; D84.821 Immunodeficiency due to drugs; I48.92 Unspecified atrial flutter; I48.0 Paroxysmal atrial fibrillation; E78.5 Hyperlipidemia, unspecified; Z66 Do not resuscitate; E11.9 Type 2 diabetes mellitus without complications; D64.9 Anemia, unspecified; E03.9 Hypothyroidism, unspecified; E86.0 Dehydration; E86.1 Hypovolemia; I07.1 Rheumatic tricuspid insufficiency; I11.0 Hypertensive heart disease with heart failure; I25.10 Atherosclerotic heart disease of native coronary artery without angina pectoris; I25.5 Ischemic cardiomyopathy; L40.9 Psoriasis, unspecified; M10.9 Gout, unspecified; Z79.899 Other long term (current) drug therapy; Z82.49 Family history of ischemic heart disease and other diseases of the circulatory system; I25.2 Old myocardial infarction; Z79.01 Long term (current) use of anticoagulants; Z86.718 Personal history of other venous thrombosis and embolism; Z87.891 Personal history of nicotine dependence; Z90.49 Acquired absence of other specified parts of digestive tract; Z95.5 Presence of coronary angioplasty implant and graft; Z95.810 Presence of automatic (implantable) cardiac defibrillator; Z79.84 Long term (current) use of oral hypoglycemic drugs
CPT/HCPCS: 36415; 71045; 80048; 80053; 81001; 82962; 83735; 84100; 84443; 84484; 85025; 85379; 93005; G0378; J3475; J8610; J7030

== ENCOUNTER 2020-12-16 12:40 | Observation (INO) | payer MEDICARE ==
[~2020-12-16] VITALS: Ht 177.8 cm; Wt 87.0 kg
[~2020-12-16 12:40] MED LIST changes: +AMIO200T42 PO
--- NOTE | 2020-12-16 12:50 | NUR ---
PT PRADEEP FROM DR OFFICE FOR C/O WEAKNESS FOR [address] OFFICE PT WAS A-FIB W/ RVR ON MONITOR. PT WAS AT HIS FOLLOW UP DR HUGGINS AND TOLD TO GO TO ER. PT WAS AT [facility] 3 WKS AGO FOR A-FIB & WEAKNESS. PIV PEARL GLUE DRIER, PT RECEIVED 50ML NS. B. PT AXOX4. PT CHANGED INTO GOWN, MONITORS IN PLACE, CALL LIGHT WITHIN REACH. AT .
--- NOTE | 2020-12-16 13:21 | NUR ---
PA AT BS
[2020-12-16] MEDS ORDERED: ONDANSETRON ODT 4 MG PO ONE (13:30)
[2020-12-16] MEDS ORDERED: ONDANSETRON ODT 4 MG ONE (13:31)
--- NOTE | 2020-12-16 13:41 | NUR ---
Covering primary nurse for break, no acute distress.
[2020-12-16 13:49] LABS: BASOPHILS % (AUTO) 1 % (0-1); EOSINOPHILS % (AUTO) 0 % (1-7); LYMPHOCYTES % (AUTO) 17 % (22-44); MEAN CORPUSCULAR HEMOGLOBIN 32.9 pg (27.5-34.5); MEAN CORPUSCULAR HGB CONC 33.2 g/dL (33.2-36.2); MEAN PLATELET VOLUME 7.2 fL (7.4-10.4); MONOCYTES % (AUTO) 14 % (2-9); NEUTROPHILS % (AUTO) 68 % (42-75); PLATELET COUNT 478 x10^3/uL (130-400); RED BLOOD COUNT 3.47 x10^6/uL (4.38-5.82); RED CELL DISTRIBUTION WIDTH 19.9 % (9.4-14.8)
[2020-12-16 13:57] LABS: ALANINE AMINOTRANSFERASE 13 U/L (12-78); ALBUMIN 3.1 g/dL (3.4-5.0); ANION GAP 12 mmol/L (5-15); CALCIUM 8.9 mg/dL (8.5-10.1); CHLORIDE 97 mmol/L (98-107); CREATININE 2.56 mg/dL (0.7-1.3)
[2020-12-16 14:02] LABS: ALKALINE PHOSPHATASE 66 U/L (45-117); BILIRUBIN,TOTAL 0.7 mg/dL (0.2-1.0); TROPONIN I < 0.015 ng/mL (0.000-0.045)
--- NOTE | 2020-12-16 14:30 | NUR ---
PT SITTING ON GURNEY WATCHING TV, AT BS. CALL LIGHT WITHIN REACH. NADN/VSS. BED IN LOWEST POSITION, BED RAILS UP X2
[2020-12-16] MEDS ORDERED: SODIUM CHLORIDE 0.9% 1,000 ML IV ONE (15:30)
--- NOTE | 2020-12-16 15:30 | NUR ---
PT RESTING ON GURAnxa, WATCHING TV. AT BS. CALL LIGHT WITHIN REACH. NO NEEDS AT THIS TIME
[2020-12-16] MEDS ORDERED: PHARMACY MAY ADJ FOR RENAL FX MC PRN (16:00)
[2020-12-16] MEDS ORDERED: ACETAMINOPHEN 325 MG TABLET PO PRN (16:30)
[2020-12-16] MEDS ORDERED: ONDANSETRON 2MG/ML, 2ML IVPush PRN (16:30)
[2020-12-16] MEDS: SODIUM CHLORIDE 0.9% 1,000 ML IV SCH (16:30)
--- NOTE | 2020-12-16 16:30 | NUR ---
PT TO IMAGING
[2020-12-16 16:42] LABS: C-REACTIVE PROTEIN, QUANT 0.78 mg/dL (0.02-0.49)
--- NOTE | 2020-12-16 16:45 | NUR ---
PT BACK FROM IMAGING, CONNECTED TO MONITORS. CALL LIGHT WITHIN REACH. AT BS
[2020-12-16 17:19] LABS: HCT (SEDRATE) 34.4 % (39.2-51.8)
--- NOTE | 2020-12-16 17:30 | NUR ---
Pt to be admitted to [facility], room 492. Report called to
[2020-12-16] MEDS: CARVEDILOL 6.25 MG TABLET PO SCH (18:14)
[2020-12-16 19:06] LABS: MICROSCOPIC INDICATED
[2020-12-16 19:11] VITALS: BP 111/75
[2020-12-16 19:45] VITALS: BP 111/75
[2020-12-16 19:48] VITALS: BP 116/78
[2020-12-16 19:50] VITALS: BP 110/72
[2020-12-16] MEDS ORDERED: MAGNESIUM SULFATE PMX 2GM/50ML 50 ML IV ONE (20:00)
[2020-12-16] MEDS: APIXABAN 5 MG TABLET PO SCH (20:21)
[2020-12-16] MEDS: AMIODARONE 200 MG TABLET PO SCH (20:21)
[2020-12-16] MEDS: BENZONATATE 100 MG CAPSULE PO SCH (20:21)
[2020-12-17] VITALS (7 sets, daily range): BP systolic 90–119; BP diastolic 55–72
[2020-12-17 05:26] LABS: BASOPHILS % (AUTO) 2 % (0-1); EOSINOPHILS % (AUTO) 2 % (1-7); LYMPHOCYTES % (AUTO) 27 % (22-44); MEAN CORPUSCULAR HEMOGLOBIN 33.2 pg (27.5-34.5); MEAN CORPUSCULAR HGB CONC 33.6 g/dL (33.2-36.2); MEAN PLATELET VOLUME 7.5 fL (7.4-10.4); MONOCYTES % (AUTO) 17 % (2-9); NEUTROPHILS % (AUTO) 52 % (42-75); PLATELET COUNT 429 x10^3/uL (130-400); RED BLOOD COUNT 3.11 x10^6/uL (4.38-5.82)
[2020-12-17] MEDS: CARVEDILOL 6.25 MG TABLET PO SCH ×2 (05:32→17:33)
[2020-12-17] MEDS: SODIUM CHLORIDE 0.9% 1,000 ML IV SCH ×2 (05:32→15:51)
[2020-12-17] MEDS: LEVOTHYROXINE 88 MCG TABLET PO SCH (05:33)
[2020-12-17 05:41] LABS: ALBUMIN 2.5 g/dL (3.4-5.0); ANION GAP 8 mmol/L (5-15); CHLORIDE 103 mmol/L (98-107)
[2020-12-17 05:55] LABS: ALANINE AMINOTRANSFERASE 12 U/L (12-78); ALKALINE PHOSPHATASE 52 U/L (45-117); BILIRUBIN,TOTAL 0.7 mg/dL (0.2-1.0); CREATININE 2.09 mg/dL (0.7-1.3); TOTAL PROTEIN 6.6 g/dL (6.4-8.2)
[2020-12-17] MEDS: AMIODARONE 200 MG TABLET PO SCH ×2 (08:31→21:07)
[2020-12-17] MEDS: ASPIRIN 81 MG TABLET EC PO SCH (08:32)
[2020-12-17] MEDS: BENZONATATE 100 MG CAPSULE PO SCH ×3 (08:32→21:07)
[2020-12-17] MEDS: APIXABAN 5 MG TABLET PO SCH ×2 (08:32→21:07)
[2020-12-18 02:23] VITALS: BP 95/57
[2020-12-18] MEDS: SODIUM CHLORIDE 0.9% 1,000 ML IV SCH (04:50)
[2020-12-18 05:02] LABS: BASOPHILS % (AUTO) 2 % (0-1); EOSINOPHILS % (AUTO) 4 % (1-7); LYMPHOCYTES % (AUTO) 15 % (22-44); MEAN CORPUSCULAR HEMOGLOBIN 33.2 pg (27.5-34.5); MEAN CORPUSCULAR HGB CONC 33.2 g/dL (33.2-36.2); MEAN PLATELET VOLUME 7.4 fL (7.4-10.4); MONOCYTES % (AUTO) 17 % (2-9); NEUTROPHILS % (AUTO) 62 % (42-75); PLATELET COUNT 437 x10^3/uL (130-400); RED BLOOD COUNT 3.08 x10^6/uL (4.38-5.82); RED CELL DISTRIBUTION WIDTH 20.1 % (9.4-14.8)
[2020-12-18] MEDS: LEVOTHYROXINE 88 MCG TABLET PO SCH (05:06)
[2020-12-18] MEDS: CARVEDILOL 6.25 MG TABLET PO SCH (05:07)
[2020-12-18 05:09] LABS: ANION GAP 6 mmol/L (5-15); CALCIUM 7.9 mg/dL (8.5-10.1); CHLORIDE 107 mmol/L (98-107)
[2020-12-18 05:13] LABS: CREATININE 1.66 mg/dL (0.7-1.3)
[2020-12-18] MEDS ORDERED: MAGNESIUM SULFATE PMX 2GM/50ML 50 ML IV ONE (09:00)
[2020-12-18] MEDS: ASPIRIN 81 MG TABLET EC PO SCH (09:40)
[2020-12-18] MEDS: APIXABAN 5 MG TABLET PO SCH (09:40)
[2020-12-18] MEDS: BENZONATATE 100 MG CAPSULE PO SCH ×2 (09:41→16:18)
[2020-12-18] MEDS: AMIODARONE 200 MG TABLET PO SCH (09:47)
[2020-12-18 09:51] VITALS: BP 86/56
[2020-12-18 16:19] VITALS: BP 118/74
[2020-12-18] MEDS ORDERED: BENZ-17 PO ×2 (16:51)
[2021-01-03] MEDS ORDERED: CARV3.1212 PO (12:08)
== END 2020-12-18 18:01 | disposition home or self-care (01) ==
LOC: ED 12:52 → INTOOBSV 15:10 → EDIP 15:10 → 4EST 17:45
PROVIDERS: ADMIT Internal Medicine; ATTEND Internal Medicine
DX: N17.0 Acute kidney failure with tubular necrosis (principal); Z20.822 Contact with and (suspected) exposure to COVID-19; E87.1 Hypo-osmolality and hyponatremia; R11.2 Nausea with vomiting, unspecified; R19.7 Diarrhea, unspecified; R10.9 Unspecified abdominal pain; R05 Cough; I13.0 Hypertensive heart and chronic kidney disease with heart failure and stage 1 through stage 4 chronic kidney disease, or unspecified chronic kidney disease; E11.22 Type 2 diabetes mellitus with diabetic chronic kidney disease; I50.9 Heart failure, unspecified; N18.9 Chronic kidney disease, unspecified; I48.0 Paroxysmal atrial fibrillation; D68.69 Other thrombophilia; I25.5 Ischemic cardiomyopathy; E78.5 Hyperlipidemia, unspecified; E03.9 Hypothyroidism, unspecified; M10.9 Gout, unspecified; L40.9 Psoriasis, unspecified; D84.9 Immunodeficiency, unspecified; I82.531 Chronic embolism and thrombosis of right popliteal vein; E86.0 Dehydration; I25.2 Old myocardial infarction; Z79.899 Other long term (current) drug therapy; Z79.82 Long term (current) use of aspirin; Z87.891 Personal history of nicotine dependence
CPT/HCPCS: 36415; 71045; 71250; 74018; 80048; 80053; 81001; 82962; 83690; 83735; 83880; 84100; 84145; 84443; 84484; 85025; 85379; 85651; 86140; 87086; 92610; 93005; 96361; 96365; 96366; 99285; G0378; J3475; J7030; Q0162; U0003; U0005